=== PATIENT | male | born 1970 | race Caucasian/White ===

== ENCOUNTER 2017-08-25 15:43 | Emergency (ER) | payer OTHER ==
[2017-08-25 15:57] VITALS: BP 136/83
--- NOTE | 2017-08-25 16:05 | UC ---
Palpitation/Dysrhythmia HP - HPI Summary HPI Summary: 46 year old with palpitations. PT HAD EKG 08/22/17 AT [facility] DUE TO HEART PALPITATIONS OR WHAT PT DESCRIBES "HICCUPS". WHEN THIS HAPPENS PT STATES HE FEELS A SHOCK, GO UP THROUGH THE LEFT SIDE OF HIS NECK. Has had previous Sx years ago and went to cardiology and no acute concerns. Is under stress, at PCP Dx depression and started citalopram 3 days ago . now skipped beats more prominent. no CP, no one sitting on chest. no diaphoresis. no radiating chest pain . had neg cards work up 2007. no smoking / DM-2 / fam hx of cardiac concerns [ End ] - History of Current Complaint Chief Complaint: UCGeneralIllness Stated Complaint: CHEST COMPLAINT Time Seen by Provider: 08/25/17 16:02 Hx Obtained From: Patient Onset/Duration: Sudden Onset Timing: Intermittent Episodes Lasting: Severity Initially: Moderate Severity Currently: Moderate Pain Intensity: 0 Related History: Similar Episode/Dx as - Allergy/Home Medications Allergies/Adverse Reactions: Allergies Allergy/AdvReac Type Severity Reaction Status Date / Time Sulfa (Sulfonamide Allergy Severe Anaphylatic Verified 08/25/17 15:58 Antibiotics) Shock PMH/Surg Hx/FS Hx/Imm Hx Previously Healthy: Yes - Surgical History Surgical History: None - Family History Known Family History: Positive: None Negative: Cardiac Disease - Social History Occupation: Unemployed Lives: With Family Alcohol Use: Occasionally Substance Use Type: None Smoking Status (MU): Never Smoked Tobacco Review of Systems Cardiovascular: Palpitations Psychological: Depressed Is Patient Immunocompromised?: No All Other Systems Reviewed And Are Negative: Yes Physical Exam Triage Information Reviewed: Yes Appearance: Well-Appearing, No Pain Distress, Well-Nourished Vital Signs: Initial Vital Signs Temp 98.7 F 08/25/17 15:46 Pulse 67 08/25/17 15:46 Resp 18 08/25/17 15:46 BP 136/83 08/25/17 15:46 Pulse Ox 99 08/25/17 15:46 Vital Signs Reviewed: Yes Eyes: Positive: Conjunctiva Clear ENT: Positive: Hearing grossly normal Neck exam: Normal Neck: Positive: 1 Respiratory Exam: Normal Cardiovascular Exam: Normal Musculoskeletal Exam: Normal Neurological Exam: Normal Psychological Exam: Normal Skin Exam: Normal Diagnostics - EKG Cardiac Rate: NL Cardiac Rhythm: Sinus: Normal - PVC present Palpitations Course/Dx - Course Course Of Treatment: could be SE from new SSRI he started 3 days ago. No red flags. No significant risk factors. Has cards appt in August. Go to ED if Sx persist. Can try beta ramiro if Sx persist. EKg shows PVC but otherwise no acute concerns. Had neg cardiac work up 2007 for ischemia. non cardiac on origin it appears at this time. we can not draw tropopin at this time and he is aware of this that we can not draw stat labs. he admited to increase stress / depression from work and thats why SSRI started . he states no CP and feels the stress has made this worsened . - Differential Dx/Diagnosis Provider Diagnoses: Palpitations Discharge - Sign-Out/Discharge Documenting (check all that apply): Discharge - Discharge Plan Condition: Good Disposition: HOME Prescriptions: Metoprolol Tartrate TAB* [Lopressor TAB*] 25 mg PO BID #10 tab Patient Education Materials: Heart Palpitations (ED) Referrals: Arnold Morales PA [Primary Care Provider] - 4 Days (also keep your cardiology appt ) Additional Instructions: If your symptoms worsen then go to the emergency room - Billing Disposition and Condition Condition: GOOD Disposition: HOME
== END 2017-08-25 16:45 | disposition home or self-care (01) ==
LOC: UCCORT 15:43
DX: R00.2 Palpitations (principal); Z88.3 Allergy status to other anti-infective agents
CPT/HCPCS: 93005; 99212; G0463